=== PATIENT | male | born 1965 | race African-American/Black ===

== ENCOUNTER 2017-04-21 02:45 | Emergency (ER) | payer MEDICAID ==
[~2017-04-21] VITALS: Ht 180.3 cm; Wt 99.8 kg
[2017-04-21] MEDS ORDERED: NKM (02:57)
--- NOTE | 2017-04-21 03:10 | Emergency Room Report ---
History of Present Illness General Chief Complaint: Pain Source: Patient Present Illness HPI Is a 51-year-old male with no past medical history. He presents with chief complaint right ankle swelling. Onset for last 3 days. No fever or chills. No nausea no vomiting. Some redness in that area. Worse with walking. He said symptom he has swelling but never like this. Denies any other complaint. No calf tenderness. No shortness of breath. Allergies: Coded Allergies: No Known Allergies (Unverified , 04/21/17) Patient History Past Medical History: see triage record, old chart reviewed Past Surgical History: other Pertinent Family History: none Social History: Denies: smoking Immunizations: other Reviewed Nursing Documentation: PMH: Agreed, PSxH: Agreed Nursing Documentation-PMH Past Medical History: No Stated History Review of Systems Eye: Denies: eye pain, blurred vision ENT: Denies: ear pain, nose congestion, throat swelling Respiratory: Denies: cough, shortness of breath Cardiovascular: Denies: chest pain, palpitations Gastrointestinal: Denies: abdominal pain, diarrhea, nausea, vomiting Musculoskeletal: Reports: joint pain, joint swelling, Denies: back pain Skin: Denies: rash Neurological: Denies: headache, numbness Endocrine: Denies: increased thirst, increased urine Hematologic/Lymphatic: Denies: easy bruising All Other Systems: negative except mentioned in HPI Physical Exam Vital Signs Date Time Temp Pulse Resp B/P (MAP) Pulse Ox O2 Delivery O2 Flow Rate FiO2 04/21/17 02:51 98.4 76 18 138/75 98 Room Air vitals normal Sp02 EP Interpretation: reviewed, normal General Appearance: well appearing, no apparent distress, alert Head: normocephalic, atraumatic Eyes: bilateral eye PERRL, bilateral eye EOMI ENT: hearing grossly normal, normal pharynx Neck: full range of motion, supple, no meningismus Respiratory: chest non-tender, lungs clear, normal breath sounds Cardiovascular #1: regular rate, rhythm, no murmur Gastrointestinal: normal bowel sounds, non tender, no mass, no organomegaly, no bruit, non-distended Musculoskeletal: back normal, gait/station normal, normal range of motion, other - Right ankle: There is edema and tenderness Along the lateral malleolus. Mild redness and warmth. No calf tenderness Psychiatric: mood/affect normal Skin: warm/dry Medical Decision Making Diagnostic Impression: Primary Impression: Acute right ankle pain Additional Impression: Cellulitis of right ankle ER Course Patient presents with right ankle swelling and redness. No evidence of any fracture. This may be gout versus cellulitis. No evidence of any abscess. We' ll discharge home with antibiotics. No evidence of DVT in this patient. No calf tenderness. No edema to the calf versus the other side. Other X-Ray Diagnostic Results Other X-Ray Diagnostic Results : X-Ray ordered: Right ankle x-rays # of Views/Limited Vs Complete: 3 View Indication: Pain EP Interpretation: Yes Interpretation: no dislocation, no soft tissue swelling, no fractures, nonspecific bowel gas Impression: No acute disease Interpreting ER Provider: Electronically signed by Chance Servin MD Last Vital Signs Date Time Temp Pulse Resp B/P (MAP) Pulse Ox O2 Delivery O2 Flow Rate FiO2 04/21/17 02:51 98.4 76 18 138/75 98 Room Air Status: improved Disposition: HOME, SELF-CARE Condition: Stable Scripts Hydrocodone/Acetaminophen 5-325* (HYDROCODONE/ACETAMINOPHEN 5-325*) 1 Each Tablet 1 TAB ORAL Q6H Y for For Pain, #20 TAB 0 Refills Prov: CHANCE SERVIN M.D. 04/21/17 Doxycycline Monohydrate* (DOXYCYCLINE MONOHYDRATE*) 100 Mg Capsule 100 MG ORAL Q12H, #14 CAP 0 Refills Prov: CHANCE SERVIN M.D. 04/21/17 Patient Instructions: PAIN, Uncertain Cause (Acute) Additional Instructions: Followup with your DrMargy in 2-3 days for recheck. Elevate leg. Return it worse. CHANCE SERVIN M.D. Apr 21, 2017 03:09
[2017-04-21] MEDS ORDERED: DOXYCYCLINE MO100 MG ORAL (03:24)
[2017-04-21] MEDS ORDERED: HYDROCODON-ACE1 EA15 ORAL (03:24)
[2017-04-21 03:31] VITALS: BP 138/75
--- NOTE | 2017-04-21 09:28 | Diagnostic Imaging Report ---
Indication: PAIN Technique: 3 views of the right ankle Comparison: none Findings: There is lateral soft tissue swelling. No acute fractures. No dislocations. Joint spaces are preserved Impression: Soft tissue swelling. No acute bony trauma
== END 2017-04-21 03:31 | disposition home or self-care (01) ==
LOC: EMR 03:12
DX: L03.115 Cellulitis of right lower limb (principal)
CPT/HCPCS: 99284